=== PATIENT | female | born 1990 ===

== ENCOUNTER 2021-05-23 11:06 | Outpatient (CLI) | payer OTHER | END 2021-05-23 12:30 | disposition home or self-care (01) | LOC: PRENATAL 11:06 | PROVIDERS: ATTEND Obstetrics & Gynecology Maternal & Fetal Medicine | DX: Z36.89 Encounter for other specified antenatal screening (principal); O36.80X1 Pregnancy with inconclusive fetal viability, fetus 1; Z3A.14 14 weeks gestation of pregnancy ==

== ENCOUNTER 2021-07-09 13:09 | Emergency (ER) | payer OTHER ==
[~2021-07-09] VITALS: Ht 167.6 cm; Wt 83.9 kg
[2021-07-09] MEDS ORDERED: ZITHROMAX200 MG PO (16:15)
== END 2021-07-09 16:53 | disposition home or self-care (01) ==
LOC: ER 13:09
DX: O26.892 Other specified pregnancy related conditions, second trimester (principal); G51.0 Bell's palsy; Z11.52 Encounter for screening for COVID-19; Z34.82 Encounter for supervision of other normal pregnancy, second trimester

== ENCOUNTER 2021-07-12 08:07 | Outpatient (CLI) | payer OTHER ==
[~2021-07-12 08:07] MED LIST: ZITHROMAX200 MG PO
== END 2021-07-12 09:19 | disposition home or self-care (01) ==
LOC: PRENATAL 08:07
PROVIDERS: ATTEND Obstetrics & Gynecology Maternal & Fetal Medicine
DX: O35.0XX1 Maternal care for (suspected) central nervous system malformation in fetus, fetus 1 (principal); O35.3XX1 Maternal care for (suspected) damage to fetus from viral disease in mother, fetus 1; O98.512 Other viral diseases complicating pregnancy, second trimester; Z36.89 Encounter for other specified antenatal screening; Z3A.21 21 weeks gestation of pregnancy

== ENCOUNTER 2021-09-26 15:00 | Outpatient (CLI) | payer OTHER | END 2021-09-26 16:18 | disposition home or self-care (01) | LOC: PRENATAL 15:00 | PROVIDERS: ATTEND Obstetrics & Gynecology Maternal & Fetal Medicine | DX: O26.849 Uterine size-date discrepancy, unspecified trimester (principal); O36.8199 Decreased fetal movements, unspecified trimester, other fetus; Z3A.32 32 weeks gestation of pregnancy ==